=== PATIENT | female | born 1950 | race Caucasian/White ===

== ENCOUNTER 2019-08-24 18:48 | Inpatient (IN) | payer OTHER, MEDICAID ==
[~2019-08-24] VITALS: Ht 154.9 cm; Wt 91.0 kg
[2019-08-24 18:54] VITALS: Ht 154.9 cm; Wt 91.0 kg
[2019-08-24 20:01] LABS: PLATELET COUNT 31 x10^3mcL (130-400); RED CELL DISTRIBUTION WIDTH 18.2 % (11.5-14.5)
[2019-08-24 20:46] LABS: BAND NEUTROPHIL 11 % (0-10); METAMYELOCTE 8 % (0-2); MONOCYTE 4 % (0-7); SEGMENTED NEUTROPHILS 69 % (37-75)
[2019-08-24 20:48] LABS: PLATELET MORPHOLOGY PLATELETS DECREASED; rbc morphology (normal/abnorm) ABNORMAL (NORMAL)
[2019-08-24 21:09] LABS: ALKALINE PHOSPHATASE 346 U/L (46-116); ALT/SGPT 25 U/L (14-59); AST/SGOT 50 U/L (15-37); BILIRUBIN TOTAL 4.1 mg/dL (0.20-1.00); CALCIUM 9.1 mg/dL (8.5-10.1); CARBON DIOXIDE 11.8 mmol/L (21-32); CHLORIDE SERUM 94 mmol/L (98-107); GLUCOSE SERUM 195 mg/dL (74-106); SODIUM SERUM 132 mmol/L (136-145); TOTAL PROTEIN, SERUM 7.5 g/dL (6.4-8.2)
[2019-08-24 21:11] LABS: GFR1 9 mL/min
[2019-08-25 01:15] LABS: UA SPECIFIC GRAVITY 1.025 (1.005-1.035); microscopic required? YES; urine erythrocyte 3+ (NEGATIVE)
[2019-08-25 04:26] LABS: MAGNESIUM 1.5 mg/dL (1.8-2.4)
[2019-08-25 04:30] LABS: CHOLESTEROL/HDL RATIO 13.9
[2019-08-25 10:45] LABS: CALCIUM 7.8 mg/dL (8.5-10.1); CARBON DIOXIDE 15.2 mmol/L (21-32); POTASSIUM SERUM 3.9 mmol/L (3.5-5.1)
[2019-08-25 10:49] LABS: CREATININE SERUM 4.6 mg/dL (0.6-1.0)
[2019-08-25 10:56] LABS: RED CELL DISTRIBUTION WIDTH 18.4 % (11.5-14.5)
[2019-08-25 10:58] LABS: PLATELET COUNT 17 x10^3mcL (130-400)
[2019-08-25 13:26] LABS: rbc morphology (normal/abnorm) NORMAL (NORMAL)
[2019-08-25] MEDS ORDERED: TRAZODONE50 M1 (19:09)
[2019-08-25] MEDS ORDERED: NAP375 (19:09)
[2019-08-25] MEDS ORDERED: BENAZEPRIL HYDR1 POW (19:09)
[2019-08-26 04:10] VITALS: BP 144/59
[2019-08-26 09:23] LABS: ALBUMIN 2.6 g/dL (3.4-5.0); BILIRUBIN TOTAL 0.4 mg/dL (0.20-1.00); CARBON DIOXIDE 24.8 mmol/L (21-32); CREATININE SERUM 1.7 mg/dL (0.6-1.0); MAGNESIUM 1.7 mg/dL (1.8-2.4); PHOSPHOROUS 2.1 mg/dL (2.5-4.9); POTASSIUM SERUM 3.8 mmol/L (3.5-5.1); TOTAL PROTEIN, SERUM 7.9 g/dL (6.4-8.2)
[2019-08-26 11:11] LABS: BASOPHIL % 0 % (0-2); PLATELET COUNT 13 x10^3mcL (130-400)
[2019-08-26 12:15] VITALS: BP 103/70
[2019-08-26 15:09] LABS: BASOPHIL % 0.5 % (0-2)
[2019-08-26 15:47] LABS: RED CELL DISTRIBUTION WIDTH 18.8 % (11.5-14.5)
[2019-08-26 15:48] LABS: PLATELET COUNT 8 x10^3mcL (130-400)
[2019-08-26 16:00] VITALS: BP 118/52
[2019-08-26 19:02] LABS: BASOPHIL % 0 % (0-2); RED CELL DISTRIBUTION WIDTH 18.9 % (11.5-14.5)
[2019-08-26 19:03] LABS: PLATELET COUNT 27 x10^3mcL (130-400)
[2019-08-27 04:00] VITALS: BP 145/60
[2019-08-27 05:47] LABS: BILIRUBIN TOTAL 5.8 mg/dL (0.20-1.00); CALCIUM 8.1 mg/dL (8.5-10.1); CARBON DIOXIDE 18.7 mmol/L (21-32); CREATININE SERUM 3.9 mg/dL (0.6-1.0); POTASSIUM SERUM 3.3 mmol/L (3.5-5.1)
[2019-08-27 05:49] LABS: ALBUMIN 1.3 g/dL (3.4-5.0)
[2019-08-27 05:59] LABS: BASOPHIL % 1.7 % (0-2)
[2019-08-27 06:01] LABS: RED CELL DISTRIBUTION WIDTH 18.9 % (11.5-14.5)
[2019-08-27 06:45] LABS: PLATELET COUNT 16 x10^3mcL (130-400)
[2019-08-27 08:15] VITALS: BP 143/50
[2019-08-27 12:00] VITALS: BP 156/63
[2019-08-27 15:00] VITALS: BP 115/47
[2019-08-27] MEDS ORDERED: MER500I IV (15:27)
[2019-08-27 19:05] LABS: CALCIUM 8.2 mg/dL (8.5-10.1); CARBON DIOXIDE 18.8 mmol/L (21-32); POTASSIUM SERUM 3.5 mmol/L (3.5-5.1)
[2019-08-27 19:06] LABS: CREATININE SERUM 4.1 mg/dL (0.6-1.0)
[2019-08-28 05:58] LABS: BASOPHIL % 1.6 % (0-2)
[2019-08-28 06:00] LABS: PLATELET COUNT 60 x10^3mcL (130-400); RED CELL DISTRIBUTION WIDTH 19.3 % (11.5-14.5)
[2019-08-28 06:10] LABS: BILIRUBIN TOTAL 5.8 mg/dL (0.20-1.00); CALCIUM 8.2 mg/dL (8.5-10.1); CARBON DIOXIDE 18.9 mmol/L (21-32); CREATININE SERUM 3.9 mg/dL (0.6-1.0); MAGNESIUM 1.9 mg/dL (1.8-2.4); PHOSPHOROUS 4.1 mg/dL (2.5-4.9); POTASSIUM SERUM 3.4 mmol/L (3.5-5.1)
[2019-08-28 06:11] LABS: ALBUMIN 1.3 g/dL (3.4-5.0); TOTAL PROTEIN, SERUM 5.1 g/dL (6.4-8.2)
[2019-08-28 08:30] VITALS: BP 125/41
[2019-08-28 13:23] VITALS: BP 112/74
[2019-08-28 17:00] VITALS: BP 110/47
[2019-08-28 21:44] VITALS: BP 114/64
[2019-08-29 06:38] VITALS: BP 126/42
[2019-08-29 13:54] VITALS: BP 114/43
[2019-08-29 17:51] VITALS: BP 117/53
[2019-08-29 19:26] VITALS: BP 117/53
[2019-08-29 20:37] VITALS: BP 117/56
== END 2019-08-29 21:26 | disposition short-term general hospital (02) | DRG 871 ==
LOC: ED 18:48 → DU 08-25 00:57 → IC 08-25 00:57 → DU 08-28 07:39 → MU 08-29 19:31
PROVIDERS: Family Medicine; Internal Medicine; ADMIT Internal Medicine; ATTEND Internal Medicine
PROC: 5A2204Z Restoration of Cardiac Rhythm, Single (ICD-10-PCS; 2019-08-25)
PROC: 02HV33Z Insertion of Infusion Device into Superior Vena Cava, Percutaneous Approach (ICD-10-PCS; 2019-08-26)
PROC: B548ZZA Ultrasonography of Superior Vena Cava, Guidance (ICD-10-PCS; 2019-08-26)
PROC: 30233R1 Transfusion of Nonautologous Platelets into Peripheral Vein, Percutaneous Approach (ICD-10-PCS; principal; 2019-08-27)
DX: A41.9 Sepsis, unspecified organism (principal); R57.0 Cardiogenic shock; K76.7 Hepatorenal syndrome; N17.0 Acute kidney failure with tubular necrosis; R65.21 Severe sepsis with septic shock; N39.0 Urinary tract infection, site not specified; E87.1 Hypo-osmolality and hyponatremia; N10 Acute pyelonephritis; I47.1 Supraventricular tachycardia; E87.2 Acidosis; E78.5 Hyperlipidemia, unspecified; Z90.49 Acquired absence of other specified parts of digestive tract; F41.9 Anxiety disorder, unspecified; D69.6 Thrombocytopenia, unspecified; E83.42 Hypomagnesemia; D63.8 Anemia in other chronic diseases classified elsewhere; E66.9 Obesity, unspecified; Z71.3 Dietary counseling and surveillance; I48.91 Unspecified atrial fibrillation; E11.22 Type 2 diabetes mellitus with diabetic chronic kidney disease; N18.3 Chronic kidney disease, stage 3 (moderate); Z20.828 Contact with and (suspected) exposure to other viral communicable diseases; I95.9 Hypotension, unspecified; K74.60 Unspecified cirrhosis of liver; B96.20 Unspecified Escherichia coli [E. coli] as the cause of diseases classified elsewhere
CPT/HCPCS: 36556; 36600; 82962; 83880; 87046; 87046-59; G0378; J0153; J0696; J1815; J1940; J2001; J2060; J2185; J2405; J2543; J3010; J3490; J7030; J7040; J7050; P9035; P9047; Q0092; Q0163; U0003-CS